=== PATIENT | male | born 1945 | race African-American/Black ===

== ENCOUNTER 2018-12-20 08:41 | Inpatient (IN) | payer MEDICARE, MEDICAID ==
[~2018-12-20] VITALS: Ht 175.3 cm; Wt 63.5 kg
[~2018-12-20 08:41] MED LIST: AMLO10TA80 PO; BENA20TA10 PO; LACTATED RINGERS 1,000 ML IV SCH; OXYB5TAB11 PO
[2018-12-20] MEDS ORDERED: ONDANSETRON HCL 4MG/2ML INJ IV PRN ×2 (09:15→14:30)
[2018-12-20] MEDS ORDERED: MORPHINE SULFATE 2 MG/ML CPJ (NOT FOR IM USE) IV PRN (09:15)
[2018-12-20] MEDS ORDERED: ACETAMINOPHEN 650MG SUPP PR PRN (09:15)
[2018-12-20] MEDS ORDERED: FENTANYL CITRATE/PF 50MCG/ML 2ML VIAL ONE ×2 (09:35→13:16)
[2018-12-20] MEDS ORDERED: MIDAZOLAM HCL 2 MG/2 ML VIAL ONE (09:36)
[2018-12-20] MEDS ORDERED: HYDROMORPHONE HCL/PF 2MG/ML (OR) ONE ×2 (09:36→14:13)
[2018-12-20] MEDS ORDERED: FENTANYL CITRATE/PF 50MCG/ML 5ML VIAL ONE (09:36)
[2018-12-20] MEDS ORDERED: PROPOFOL 200MG/20ML VIAL IV ONE (09:36)
[2018-12-20] MEDS ORDERED: ROCURONIUM BROMIDE 10MG/ML VIAL 5ML IV ONE (09:36)
[2018-12-20] MEDS ORDERED: EPHEDRINE SULFATE 50MG/ML VIAL ONE (10:40)
[2018-12-20] MEDS ORDERED: ONDANSETRON HCL 4MG/2ML INJ ONE (13:11)
[2018-12-20] MEDS ORDERED: NEOSTIGMINE METHYLSULFATE 1MG/ML 10 ML VIAL ONE (13:13)
[2018-12-20] MEDS ORDERED: GLYCOPYRROLATE 0.2 MG/ML 2ML VIAL ONE (13:13)
[2018-12-20] MEDS ORDERED: BUPIVACAINE HCL 0.5% 290 ML in ON-Q PM015 DRUG DELIV DEVICE 1 EA IR SCH (13:15)
[2018-12-20] MEDS ORDERED: BUPIVACAINE HCL 0.5% 290 ML in ON-Q PUMP (PM015=P270X4D) IR SCH (13:15)
[2018-12-20] MEDS ORDERED: METRONIDAZOLE 500 MG PREMIX 100 ML IV ONE (14:00)
[2018-12-20] MEDS ORDERED: BUPIVACAINE HCL 0.5% (5MG/ML) 50ML ONE (14:00)
[2018-12-20] MEDS ORDERED: LEVOFLOXACIN 500MG PREMIX 100 ML IV ONE (14:00)
[2018-12-20] MEDS ORDERED: SKIN ADHESIVE 0.7 GM EA TOP ONE (14:00)
[2018-12-20] MEDS ORDERED: INDOCYANINE GREEN 25 MG VIAL IV ONE (14:00)
[2018-12-20] MEDS ORDERED: FENTANYL CITRATE/PF 50MCG/ML 2ML VIAL IV PRN (14:30)
[2018-12-20] MEDS ORDERED: HYDROMORPHONE HCL/PF 2MG/ML CPJ IV PRN (14:30)
[2018-12-20] MEDS ORDERED: HYDROMORPHONE PCA 50 ML IV ONE (14:56)
[2018-12-20] MEDS ORDERED: NALOXONE INJ IV PRN (15:00)
[2018-12-20] MEDS ORDERED: HYDROMORPHONE PCA 10MG/50ML IV PRN (15:00)
[2018-12-20] MEDS ORDERED: DIPHENHYDRAMINE INJ IV PRN (15:00)
[2018-12-20] MEDS ORDERED: ONDANSETRON INJ IV PRN (15:00)
[2018-12-20 16:15] VITALS: BP 129/74
[2018-12-20] MEDS: LEVOFLOXACIN 500MG PREMIX 100 ML IV SCH (18:20)
[2018-12-20] MEDS: DEXT 5%/0.45% NACL KCL 20MEQ/L 1,000 ML IV SCH (18:20)
[2018-12-20 20:00] VITALS: BP 129/79
[2018-12-20] MEDS: METRONIDAZOLE 500 MG PREMIX 100 ML IV SCH (20:50)
[2018-12-20] MEDS: FAMOTIDINE 20MG/2ML VIAL IV SCH (20:50)
[2018-12-20] MEDS ORDERED: FAMOTIDINE 20MG/2ML VIAL IV NR (21:00)
[2018-12-21] VITALS: BP 141/86
[2018-12-21 04:00] VITALS: BP 119/61
[2018-12-21] MEDS: METRONIDAZOLE 500 MG PREMIX 100 ML IV SCH ×3 (04:44→13:53)
[2018-12-21] MEDS: DEXT 5%/0.45% NACL KCL 20MEQ/L 1,000 ML IV SCH ×2 (04:44→21:14)
[2018-12-21 08:00] VITALS: BP 136/74
[2018-12-21] MEDS: FAMOTIDINE 20MG/2ML VIAL IV SCH ×2 (09:06→21:14)
[2018-12-21 11:41] VITALS: BP 140/68
[2018-12-21 16:22] VITALS: BP 174/63
[2018-12-21] MEDS: LEVOFLOXACIN 500MG PREMIX 100 ML IV SCH (17:37)
[2018-12-21 20:00] VITALS: BP 133/70
[2018-12-22] VITALS: BP 143/75
[2018-12-22 04:00] VITALS: BP 139/79
[2018-12-22 08:00] VITALS: BP 136/65
[2018-12-22] MEDS: DEXT 5%/0.45% NACL KCL 20MEQ/L 1,000 ML IV SCH ×2 (09:14→20:30)
[2018-12-22] MEDS: FAMOTIDINE 20MG/2ML VIAL IV SCH ×2 (09:14→21:56)
[2018-12-22 12:02] VITALS: BP 152/79
[2018-12-22] MEDS ORDERED: HYDRALAZINE 20MG/ML VIAL IV PRN (13:45)
[2018-12-22] MEDS ORDERED: HYDRALAZINE 10 MG in SODIUM CHLORIDE 0.9% 49.5 ML IV PRN (14:00)
[2018-12-22] MEDS: TAMSULOSIN HCL 0.4MG SR CAPSULE PO SCH (14:12)
[2018-12-22] MEDS: AMLODIPINE 10MG TABLET PO SCH (14:12)
[2018-12-22] MEDS: FINASTERIDE 5MG TABLET PO SCH (14:12)
[2018-12-22 16:00] VITALS: BP 148/80
[2018-12-22 20:00] VITALS: BP 150/84
[2018-12-23] VITALS: BP 137/76
[2018-12-23 04:00] VITALS: BP 136/88
[2018-12-23] MEDS: DEXT 5%/0.45% NACL KCL 20MEQ/L 1,000 ML IV SCH ×2 (06:30→15:40)
[2018-12-23 08:00] VITALS: BP 145/63
[2018-12-23 08:09] LABS: HEMATOCRIT. 35.1 % (42.0-52.0); HEMOGLOBIN. 11.5 g/dL (14.0-18.0); MEAN CORPUSCULAR HEMOGLOBIN 27.8 pg (28.0-32.0); MEAN CORPUSCULAR VOLUME 84.7 fL (80.0-94.0); MEAN PLATELET VOLUME 8.7 fl (7.4-10.4); PLATELET 250 x1000/uL (130-400); RED BLOOD CELL COUNT 4.15 mill/uL (4.7-6.1); RED CELL DISTRIBUTION WIDTH 16.5 % (11.6-14.6)
[2018-12-23 09:10] LABS: CHLORIDE 103 mEq/L (98-107)
[2018-12-23] MEDS: TAMSULOSIN HCL 0.4MG SR CAPSULE PO SCH (09:11)
[2018-12-23] MEDS: FAMOTIDINE 20MG/2ML VIAL IV SCH ×2 (09:12→21:55)
[2018-12-23] MEDS: AMLODIPINE 10MG TABLET PO SCH (09:12)
[2018-12-23] MEDS: FINASTERIDE 5MG TABLET PO SCH (09:13)
[2018-12-23 09:24] LABS: HDL CHOLESTEROL 43 mg/dL (40-59); LDL CHOLESTEROL 55 mg/dL (5-100)
[2018-12-23 12:00] VITALS: BP 130/70
[2018-12-23 16:00] VITALS: BP_SYST 131; BP_SYST 145; BP_DIAS 63; BP_DIAS 77
[2018-12-23 20:00] VITALS: BP 147/73
[2018-12-24] VITALS: BP 135/69
[2018-12-24] MEDS: DEXT 5%/0.45% NACL KCL 20MEQ/L 1,000 ML IV SCH ×3 (00:13→23:09)
[2018-12-24 03:43] LABS: PLATELET ESTIMATE NORMAL
[2018-12-24 04:00] VITALS: BP 129/61
[2018-12-24 08:00] VITALS: BP 124/73
[2018-12-24 08:29] LABS: HEMATOCRIT. 32.6 % (42.0-52.0); HEMOGLOBIN. 10.9 g/dL (14.0-18.0); MEAN CORPUSCULAR VOLUME 83.6 fL (80.0-94.0); MEAN PLATELET VOLUME 8.6 fl (7.4-10.4); PLATELET 260 x1000/uL (130-400); RED CELL DISTRIBUTION WIDTH 16.5 % (11.6-14.6)
[2018-12-24] MEDS: AMLODIPINE 10MG TABLET PO SCH (08:29)
[2018-12-24] MEDS: TAMSULOSIN HCL 0.4MG SR CAPSULE PO SCH (08:30)
[2018-12-24] MEDS: FAMOTIDINE 20MG/2ML VIAL IV SCH ×2 (08:31→20:56)
[2018-12-24] MEDS: FINASTERIDE 5MG TABLET PO SCH (08:31)
[2018-12-24 08:49] LABS: CHLORIDE 102 mEq/L (98-107)
[2018-12-24 12:00] VITALS: BP 153/76
[2018-12-24 14:16] LABS: PLATELET ESTIMATE NORMAL
[2018-12-24 16:00] VITALS: BP 122/76
[2018-12-24 20:00] VITALS: BP 119/74
[2018-12-25] VITALS: BP 144/73
[2018-12-25 04:00] VITALS: BP 141/69
[2018-12-25 08:00] VITALS: BP 134/74
[2018-12-25] MEDS: FINASTERIDE 5MG TABLET PO SCH (09:00)
[2018-12-25] MEDS: AMLODIPINE 10MG TABLET PO SCH (10:55)
[2018-12-25] MEDS: TAMSULOSIN HCL 0.4MG SR CAPSULE PO SCH (10:56)
[2018-12-25] MEDS: FAMOTIDINE 20MG/2ML VIAL IV SCH ×2 (10:57→21:20)
[2018-12-25] MEDS: ENOXAPARIN 40MG/0.4ML SYR SUBCUT SCH (10:58)
[2018-12-25 11:15] VITALS: BP 124/79
[2018-12-25 16:00] VITALS: BP 145/75
[2018-12-25] MEDS: DEXT 5%/0.45% NACL KCL 20MEQ/L 1,000 ML IV SCH ×2 (18:22→18:35)
[2018-12-25 20:00] VITALS: BP 133/83
[2018-12-26] VITALS: BP 136/71
[2018-12-26 04:00] VITALS: BP 141/70
[2018-12-26 08:00] VITALS: BP 133/69
[2018-12-26] MEDS: AMLODIPINE 10MG TABLET PO SCH (09:10)
[2018-12-26] MEDS: FAMOTIDINE 20MG/2ML VIAL IV SCH ×2 (09:10→21:25)
[2018-12-26] MEDS: FINASTERIDE 5MG TABLET PO SCH (09:11)
[2018-12-26] MEDS: TAMSULOSIN HCL 0.4MG SR CAPSULE PO SCH (09:11)
[2018-12-26] MEDS: ENOXAPARIN 40MG/0.4ML SYR SUBCUT SCH (09:12)
[2018-12-26 11:41] VITALS: BP 138/77
[2018-12-26 16:00] VITALS: BP 151/78
[2018-12-26] MEDS ORDERED: HYDROCODONE/ACETAMINOPHEN 5/325MG TABLET PO PRN (18:45)
[2018-12-26 20:00] VITALS: BP 145/90
[2018-12-26] MEDS: DEXT 5%/0.45% NACL KCL 20MEQ/L 1,000 ML IV SCH (21:26)
[2018-12-27] VITALS: BP 141/72
[2018-12-27 04:00] VITALS: BP 132/79
[2018-12-27 06:30] LABS: CHLORIDE 103 mEq/L (98-107)
[2018-12-27 06:37] LABS: HEMATOCRIT 32.6 % (42.0-52.0); HEMOGLOBIN 10.8 g/dL (14.0-18.0); MEAN CORPUSCULAR HEMOGLOBIN 27.6 pg (28.0-32.0); MEAN CORPUSCULAR VOLUME 83.2 fL (80.0-94.0); PLATELET 360 x1000/uL (130-400); RED BLOOD CELL COUNT 3.92 mill/uL (4.7-6.1); RED CELL DISTRIBUTION WIDTH 15.8 % (11.6-14.6)
[2018-12-27 08:00] VITALS: BP 138/81
[2018-12-27] MEDS: ENOXAPARIN 40MG/0.4ML SYR SUBCUT SCH (08:22)
[2018-12-27] MEDS: TAMSULOSIN HCL 0.4MG SR CAPSULE PO SCH (08:22)
[2018-12-27] MEDS: FINASTERIDE 5MG TABLET PO SCH (08:22)
[2018-12-27] MEDS: AMLODIPINE 10MG TABLET PO SCH (08:22)
[2018-12-27] MEDS: FAMOTIDINE 20MG/2ML VIAL IV SCH (08:22)
[2018-12-27] MEDS: DEXT 5%/0.45% NACL KCL 20MEQ/L 1,000 ML IV SCH (10:28)
[2018-12-27 12:00] VITALS: BP 146/78
[2018-12-27 16:00] VITALS: BP 133/78
[2018-12-27 20:00] VITALS: BP 142/83
== END 2018-12-27 22:15 | disposition home health service (06) | DRG 330 ==
LOC: OR 08:41 → 6EST 08:42
PROVIDERS: ADMIT Surgery; ATTEND Surgery
PROC: 0DBP0ZZ Excision of Rectum, Open Approach (ICD-10-PCS; principal; 2018-12-20)
PROC: 0D1B0Z4 Bypass Ileum to Cutaneous, Open Approach (ICD-10-PCS; 2018-12-20)
PROC: 8E0W4CZ Robotic Assisted Procedure of Trunk Region, Percutaneous Endoscopic Approach (ICD-10-PCS; 2018-12-20)
DX: C20 Malignant neoplasm of rectum (principal); E87.1 Hypo-osmolality and hyponatremia; D62 Acute posthemorrhagic anemia; E78.5 Hyperlipidemia, unspecified; F17.210 Nicotine dependence, cigarettes, uncomplicated; I10 Essential (primary) hypertension; N40.0 Benign prostatic hyperplasia without lower urinary tract symptoms; R63.6 Underweight; Z92.21 Personal history of antineoplastic chemotherapy; Z92.3 Personal history of irradiation; Z79.899 Other long term (current) drug therapy; Z91.048 Other nonmedicinal substance allergy status; Z68.20 Body mass index [BMI] 20.0-20.9, adult; Z53.31 Laparoscopic surgical procedure converted to open procedure
CPT/HCPCS: 36415; 74018; 80048; 80061; 82962; 85027; 86850; 86900; 88307; 88309; 88329; 97116; 97162; C1893; J1170; J1650; J1956; J2250; J2405; J2704; J2710; J3010; J3490; J7120; Q9957; A4315

== ENCOUNTER 2019-01-25 14:17 | Inpatient (IN) | payer MEDICARE, MEDICAID ==
[~2019-01-25] VITALS: Ht 175.3 cm; Wt 61.2 kg
[~2019-01-25 14:17] MED LIST changes: -LACTATED RINGERS 1,000 ML IV SCH
[2019-01-25] MEDS ORDERED: BACITRACIN 50,000 UNITS/VIAL ONE (14:46)
[2019-01-25] MEDS ORDERED: FENTANYL CITRATE/PF 50MCG/ML 2ML VIAL ONE ×2 (15:54→16:57)
[2019-01-25] MEDS ORDERED: PROPOFOL 200MG/20ML VIAL IV ONE (15:54)
[2019-01-25] MEDS ORDERED: MIDAZOLAM HCL 2 MG/2 ML VIAL ONE (15:55)
[2019-01-25] MEDS ORDERED: LACTATED RINGERS 1,000 ML IV SCH (16:00)
[2019-01-25] MEDS ORDERED: FINA5TAB11 PO (16:10)
[2019-01-25] MEDS ORDERED: ROCURONIUM BROMIDE 10MG/ML VIAL 5ML IV ONE (16:19)
[2019-01-25] MEDS ORDERED: MORPHINE SULFATE 2 MG/ML CPJ (NOT FOR IM USE) IV PRN (16:30)
[2019-01-25] MEDS ORDERED: GLYCOPYRROLATE 0.2 MG/ML 2ML VIAL ONE (17:08)
[2019-01-25] MEDS ORDERED: NEOSTIGMINE METHYLSULFATE 1MG/ML 10 ML VIAL ONE (17:08)
[2019-01-25] MEDS ORDERED: ONDANSETRON HCL 4MG/2ML INJ IV PRN (18:00)
[2019-01-25] MEDS ORDERED: HYDROMORPHONE HCL/PF 2MG/ML CPJ IV PRN ×2 (18:00)
[2019-01-25] MEDS ORDERED: ACETAMINOPHEN 650MG SUPP PR PRN (18:00)
[2019-01-25] MEDS ORDERED: KETOROLAC 15MG/ML VIAL IV PRN (18:00)
[2019-01-25] MEDS ORDERED: HYDROMORPHONE HCL/PF 2MG/ML (OR) ONE (18:20)
[2019-01-25 20:00] VITALS: BP 127/69
[2019-01-25 21:00] VITALS: BP 127/69
[2019-01-26] VITALS: BP_SYST 127; BP_SYST 137; BP_DIAS 67; BP_DIAS 69
[2019-01-26] MEDS: DEXT 5%/0.45% NACL KCL 20MEQ/L 1,000 ML IV SCH ×2 (00:31→12:58)
[2019-01-26] MEDS: CEFAZOLIN 1000MG PREMIX 50 ML IV SCH ×3 (00:31→16:00)
[2019-01-26] MEDS ORDERED: ACETAMINOPHEN 650MG SUPP PR PRN (02:00)
[2019-01-26 04:00] VITALS: BP 129/64
[2019-01-26 06:50] LABS: CHLORIDE 101 mEq/L (98-107)
[2019-01-26 08:00] VITALS: BP 135/54
[2019-01-26] MEDS ORDERED: FAMOTIDINE 20MG/2ML VIAL IV SCH (09:00)
[2019-01-26 12:00] VITALS: BP 132/67
[2019-01-26 16:14] VITALS: BP 119/65
== END 2019-01-26 16:53 | disposition left against medical advice (07) | DRG 331 ==
LOC: ORIP 14:32 → 6EST 20:48
PROVIDERS: ADMIT Surgery; ATTEND Surgery
PROC: 0D1B0Z4 Bypass Ileum to Cutaneous, Open Approach (ICD-10-PCS; principal; 2019-01-25)
DX: K94.19 Other complications of enterostomy (principal); Z53.21 Procedure and treatment not carried out due to patient leaving prior to being seen by health care provider; Z79.899 Other long term (current) drug therapy; Z85.048 Personal history of other malignant neoplasm of rectum, rectosigmoid junction, and anus
CPT/HCPCS: 36415; 80048; 88307; 93005; J0690; J1170; J2250; J2270; J2704; J2710; J3010; J3490

== ENCOUNTER → 2019-05-03 | Outpatient (CLI) | payer MEDICARE, MEDICAID ==
[~2019-05-03] MED LIST changes: -AMLO10TA80 PO; -BENA20TA10 PO; +DIATR MEGLU/DIATRIZOATE SOLN 120ML ONE; +FINA5TAB11 PO
== END | disposition home or self-care (01) ==
LOC: RAD 07:35
PROVIDERS: ATTEND Surgery
DX: Z43.3 Encounter for attention to colostomy (principal)
CPT/HCPCS: 74270; Q9963

== ENCOUNTER 2019-05-30 06:56 | Inpatient (IN) | payer MEDICARE, MEDICAID ==
[~2019-05-30] VITALS: Ht 175.3 cm; Wt 65.8 kg
[~2019-05-30 06:56] MED LIST changes: -DIATR MEGLU/DIATRIZOATE SOLN 120ML ONE; -OXYB5TAB11 PO; +OXYB5TAB17 PO
[2019-05-30] MEDS ORDERED: LACTATED RINGERS 1,000 ML IV SCH (07:40)
[2019-05-30 08:05] LABS: CLARITY URINE CLOUDY (CLEAR); COLOR URINE YELLOW (YELLOW); KETONES URINE TRACE (NEGATIVE); LEUKOCYTE ESTERASE URINE NEGATIVE (NEGATIVE); NITRITE URINE NEGATIVE (NEGATIVE); OCCULT BLOOD URINE 2+ (NEGATIVE); PH URINE 5.5 (4.5-8.0); PROTEIN URINE TRACE (NEGATIVE); SPECIFIC GRAVITY URINE 1.014 (1.005-1.030); UROBILINOGEN URINE 0.2 E.U./dL (0.2-1.0)
[2019-05-30] MEDS ORDERED: SKIN ADHESIVE 0.7 GM EA TOP ONE (08:13)
[2019-05-30] MEDS ORDERED: BUPIVACAINE HCL 0.5% (5MG/ML) 50ML ONE (08:14)
[2019-05-30] MEDS ORDERED: AMLO10TA80 PO (08:39)
[2019-05-30] MEDS ORDERED: FINA5TAB11 PO (08:39)
[2019-05-30] MEDS ORDERED: VIT1CAPS49 PO (08:39)
[2019-05-30] MEDS ORDERED: MULT-1146 PO (08:39)
[2019-05-30] MEDS ORDERED: BENA20TA10 PO (08:39)
[2019-05-30] MEDS ORDERED: BIOT5000 PO (08:39)
[2019-05-30] MEDS ORDERED: LEVOFLOXACIN 500MG PREMIX 100 ML IV ONE (08:41)
[2019-05-30] MEDS ORDERED: MIDAZOLAM HCL 2 MG/2 ML VIAL ONE (09:41)
[2019-05-30] MEDS ORDERED: FENTANYL CITRATE/PF 50MCG/ML 2ML VIAL ONE (09:41)
[2019-05-30] MEDS ORDERED: PROPOFOL 200MG/20ML VIAL IV ONE (09:41)
[2019-05-30] MEDS ORDERED: SUCCINYLCHOLINE CHLORIDE 200MG/10ML IV ONE (09:42)
[2019-05-30] MEDS ORDERED: VECURONIUM BROMIDE 10 MG/VIAL IV ONE (09:42)
[2019-05-30] MEDS ORDERED: LIDOCAINE HCL/PF 1% 10 MG/ML 5ML VIAL ONE ×2 (09:42→10:12)
[2019-05-30] MEDS ORDERED: GLYCOPYRROLATE 0.2 MG/ML 2ML VIAL ONE (10:20)
[2019-05-30] MEDS ORDERED: HYDRALAZINE 20MG/ML VIAL ONE (10:53)
[2019-05-30] MEDS ORDERED: ONDANSETRON HCL 4MG/2ML INJ IV PRN ×2 (11:00→11:15)
[2019-05-30] MEDS ORDERED: ACETAMINOPHEN 650MG SUPP PR PRN (11:00)
[2019-05-30] MEDS: HYDROMORPHONE HCL/PF 2MG/ML CPJ IV PRN ×2 (11:28→12:44)
[2019-05-30 13:55] VITALS: BP_SYST 133; BP_SYST 138; BP_DIAS 70; BP_DIAS 76
[2019-05-30] MEDS: MORPHINE SULFATE 2 MG/ML CPJ (NOT FOR IM USE) IV PRN ×2 (15:12→20:19)
[2019-05-30 16:00] VITALS: BP_SYST 133; BP_SYST 140; BP_DIAS 72; BP_DIAS 76
[2019-05-30] MEDS: METOPROLOL TARTRATE 5MG/5ML VIAL IV SCH (17:07)
[2019-05-30] MEDS: DEXT 5%/0.45% NACL KCL 20MEQ/L 1,000 ML IV SCH (18:21)
[2019-05-30 19:38] LABS: HEMATOCRIT. 40.4 % (42.0-52.0); HEMOGLOBIN. 13.2 g/dL (14.0-18.0); MEAN CORPUSCULAR HEMOGLOBIN 26.6 pg (28.0-32.0); MEAN CORPUSCULAR VOLUME 81.9 fL (80.0-94.0); MEAN PLATELET VOLUME 7.9 fl (7.4-10.4); PLATELET 250 x1000/uL (130-400); RED BLOOD CELL COUNT 4.94 mill/uL (4.7-6.1); RED CELL DISTRIBUTION WIDTH 16.8 % (11.6-14.6)
[2019-05-30 19:51] LABS: CHLORIDE 101 mEq/L (98-107)
[2019-05-30 20:17] LABS: PLATELET ESTIMATE NORMAL
[2019-05-31] VITALS: BP 163/80
[2019-05-31] MEDS: METOPROLOL TARTRATE 5MG/5ML VIAL IV SCH ×4 (00:23→16:07)
[2019-05-31] MEDS: MORPHINE SULFATE 2 MG/ML CPJ (NOT FOR IM USE) IV PRN (03:27)
[2019-05-31] MEDS: DEXT 5%/0.45% NACL KCL 20MEQ/L 1,000 ML IV SCH ×2 (03:34→11:03)
[2019-05-31 06:00] VITALS: BP 149/77
[2019-05-31 07:08] LABS: HEMATOCRIT. 38.7 % (42.0-52.0); HEMOGLOBIN. 12.6 g/dL (14.0-18.0); MEAN CORPUSCULAR VOLUME 82.9 fL (80.0-94.0); MEAN PLATELET VOLUME 8.8 fl (7.4-10.4); PLATELET 198 x1000/uL (130-400); RED BLOOD CELL COUNT 4.67 mill/uL (4.7-6.1); RED CELL DISTRIBUTION WIDTH 16.8 % (11.6-14.6)
[2019-05-31 07:11] LABS: CHLORIDE 103 mEq/L (98-107)
[2019-05-31 12:00] VITALS: BP 168/78
[2019-05-31 12:56] LABS: PLATELET ESTIMATE NORMAL
[2019-05-31] MEDS ORDERED: MAGNESIUM 2 G PREMIX 50 ML IV SCH (13:00)
[2019-05-31 16:00] VITALS: BP_SYST 170; BP_DIAS 52; BP_DIAS 57
[2019-05-31 17:04] VITALS: BP 170/57
[2019-06-01] VITALS: BP 161/81
[2019-06-01] MEDS: METOPROLOL TARTRATE 5MG/5ML VIAL IV SCH ×3 (00:24→16:00)
[2019-06-01] MEDS: DEXT 5%/0.45% NACL KCL 20MEQ/L 1,000 ML IV SCH ×2 (00:25→10:49)
[2019-06-01] MEDS: MORPHINE SULFATE 2 MG/ML CPJ (NOT FOR IM USE) IV PRN ×2 (03:36→16:09)
[2019-06-01 04:00] VITALS: BP 148/73
[2019-06-01 06:30] LABS: CHLORIDE 101 mEq/L (98-107)
[2019-06-01 06:32] LABS: HEMATOCRIT. 37.7 % (42.0-52.0); HEMOGLOBIN. 12.5 g/dL (14.0-18.0); MEAN CORPUSCULAR HEMOGLOBIN 27.2 pg (28.0-32.0); MEAN CORPUSCULAR VOLUME 81.7 fL (80.0-94.0); MEAN PLATELET VOLUME 8.9 fl (7.4-10.4); PLATELET 214 x1000/uL (130-400); RED BLOOD CELL COUNT 4.62 mill/uL (4.7-6.1); RED CELL DISTRIBUTION WIDTH 16.5 % (11.6-14.6)
[2019-06-01 11:16] VITALS: BP 146/75
[2019-06-01 12:17] LABS: PLATELET ESTIMATE NORMAL
[2019-06-01] MEDS: MAGNESIUM OXIDE 400MG TABLET PO SCH (12:36)
[2019-06-01 16:00] VITALS: BP 155/86
[2019-06-01 20:25] VITALS: BP 122/80
[2019-06-02] VITALS: BP 146/74
[2019-06-02] MEDS: METOPROLOL TARTRATE 5MG/5ML VIAL IV SCH ×2 (00:23→08:53)
[2019-06-02] MEDS: DEXT 5%/0.45% NACL KCL 20MEQ/L 1,000 ML IV SCH ×4 (00:24→22:30)
[2019-06-02] MEDS: MORPHINE SULFATE 2 MG/ML CPJ (NOT FOR IM USE) IV PRN (02:41)
[2019-06-02 08:00] VITALS: BP 159/90
[2019-06-02] MEDS: MAGNESIUM OXIDE 400MG TABLET PO SCH (08:52)
[2019-06-02] MEDS: METOPROLOL TARTRATE 25MG TABLET PO SCH ×2 (11:51→22:04)
[2019-06-02 12:00] VITALS: BP 151/91
[2019-06-02 16:25] VITALS: BP 175/88
[2019-06-02 20:00] VITALS: BP 168/79
[2019-06-02] MEDS: LISINOPRIL 10MG TABLET PO SCH (22:04)
[2019-06-02] MEDS: AMLODIPINE 5MG TABLET PO SCH (22:04)
[2019-06-03] VITALS: BP 156/82
[2019-06-03] MEDS: MORPHINE SULFATE 2 MG/ML CPJ (NOT FOR IM USE) IV PRN ×3 (00:13→22:16)
[2019-06-03] MEDS: METOPROLOL TARTRATE 5MG/5ML VIAL IV SCH ×2 (00:33→08:59)
[2019-06-03 04:00] VITALS: BP 149/86
[2019-06-03 05:40] LABS: HEMATOCRIT. 37.3 % (42.0-52.0); HEMOGLOBIN. 12.5 g/dL (14.0-18.0); MEAN CORPUSCULAR HEMOGLOBIN 27.1 pg (28.0-32.0); MEAN CORPUSCULAR VOLUME 80.9 fL (80.0-94.0); MEAN PLATELET VOLUME 8.1 fl (7.4-10.4); PLATELET 237 x1000/uL (130-400); RED BLOOD CELL COUNT 4.61 mill/uL (4.7-6.1); RED CELL DISTRIBUTION WIDTH 15.9 % (11.6-14.6)
[2019-06-03 06:13] LABS: CHLORIDE 100 mEq/L (98-107)
[2019-06-03 08:00] VITALS: BP 166/81
[2019-06-03] MEDS: DEXT 5%/0.45% NACL KCL 20MEQ/L 1,000 ML IV SCH ×2 (08:58→17:55)
[2019-06-03] MEDS: MAGNESIUM OXIDE 400MG TABLET PO SCH (09:29)
[2019-06-03] MEDS: AMLODIPINE 5MG TABLET PO SCH ×2 (09:29→21:21)
[2019-06-03] MEDS: LISINOPRIL 10MG TABLET PO SCH ×2 (09:29→21:21)
[2019-06-03] MEDS: METOPROLOL TARTRATE 25MG TABLET PO SCH (09:29)
[2019-06-03 10:35] LABS: PLATELET ESTIMATE NORMAL
[2019-06-03 12:00] VITALS: BP 141/75
[2019-06-03 16:00] VITALS: BP_SYST 141; BP_SYST 159; BP_DIAS 75; BP_DIAS 76
[2019-06-03 20:00] VITALS: BP 147/78
[2019-06-03] MEDS: METOPROLOL TARTRATE 50MG TABLET PO SCH (21:22)
[2019-06-04] VITALS: BP 129/75
[2019-06-04 04:00] VITALS: BP 114/69
[2019-06-04] MEDS: DEXT 5%/0.45% NACL KCL 20MEQ/L 1,000 ML IV SCH ×2 (05:02→16:55)
[2019-06-04 07:17] LABS: HEMATOCRIT. 36.5 % (42.0-52.0); MEAN CORPUSCULAR HEMOGLOBIN 27.1 pg (28.0-32.0); MEAN CORPUSCULAR VOLUME 82.3 fL (80.0-94.0); MEAN PLATELET VOLUME 8.1 fl (7.4-10.4); PLATELET 249 x1000/uL (130-400); RED BLOOD CELL COUNT 4.43 mill/uL (4.7-6.1)
[2019-06-04 07:58] LABS: CHLORIDE 103 mEq/L (98-107)
[2019-06-04] MEDS: AMLODIPINE 5MG TABLET PO SCH ×2 (09:17→20:18)
[2019-06-04] MEDS: MAGNESIUM OXIDE 400MG TABLET PO SCH (09:17)
[2019-06-04] MEDS: LISINOPRIL 10MG TABLET PO SCH ×2 (09:17→20:18)
[2019-06-04] MEDS: METOPROLOL TARTRATE 50MG TABLET PO SCH ×2 (09:18→20:18)
[2019-06-04 12:00] VITALS: BP 123/80
[2019-06-04] MEDS ORDERED: HYDROCODONE/ACETAMINOPHEN 5/325MG TABLET PO PRN (12:15)
[2019-06-04 13:48] LABS: PLATELET ESTIMATE NORMAL
[2019-06-04 16:00] VITALS: BP 112/78
[2019-06-04 20:00] VITALS: BP 105/70
[2019-06-05] VITALS: BP 105/62
[2019-06-05] MEDS: DEXT 5%/0.45% NACL KCL 20MEQ/L 1,000 ML IV SCH (03:53)
[2019-06-05 04:00] VITALS: BP 112/67
[2019-06-05 07:30] LABS: HEMATOCRIT. 34.7 % (42.0-52.0); HEMOGLOBIN. 11.6 g/dL (14.0-18.0); MEAN CORPUSCULAR HEMOGLOBIN 27.4 pg (28.0-32.0); MEAN CORPUSCULAR VOLUME 82.1 fL (80.0-94.0); MEAN PLATELET VOLUME 7.9 fl (7.4-10.4); PLATELET 262 x1000/uL (130-400); RED BLOOD CELL COUNT 4.22 mill/uL (4.7-6.1); RED CELL DISTRIBUTION WIDTH 15.7 % (11.6-14.6)
[2019-06-05 07:45] LABS: CHLORIDE 103 mEq/L (98-107)
[2019-06-05] MEDS: LISINOPRIL 10MG TABLET PO SCH (09:41)
[2019-06-05] MEDS: MAGNESIUM OXIDE 400MG TABLET PO SCH (09:41)
[2019-06-05] MEDS: AMLODIPINE 5MG TABLET PO SCH (09:42)
[2019-06-05] MEDS ORDERED: METOPROLOL TARTRATE 25MG TABLET PO SCH (10:00)
[2019-06-05 11:44] LABS: ATYPICAL LYMPHOCYTES 1; PLATELET ESTIMATE NORMAL
[2019-06-05 12:00] VITALS: BP 143/84
[2019-06-05 12:16] VITALS: BP 113/80
== END 2019-06-05 13:35 | disposition home or self-care (01) | DRG 982 ==
LOC: OR 06:56 → 8WST 06:57
PROVIDERS: ADMIT Surgery; ATTEND Surgery
PROC: 0DSB0ZZ Reposition Ileum, Open Approach (ICD-10-PCS; principal; 2019-05-30)
DX: I49.3 Ventricular premature depolarization (principal); K56.7 Ileus, unspecified; I47.2 Ventricular tachycardia; I11.9 Hypertensive heart disease without heart failure; F17.210 Nicotine dependence, cigarettes, uncomplicated; E83.42 Hypomagnesemia; I48.91 Unspecified atrial fibrillation; N40.0 Benign prostatic hyperplasia without lower urinary tract symptoms; Z79.899 Other long term (current) drug therapy; Z93.3 Colostomy status; Z85.048 Personal history of other malignant neoplasm of rectum, rectosigmoid junction, and anus
CPT/HCPCS: 36415; 71045; 80048; 81003; 83735; 84443; 85025; 88307; 93005; 93306; 97162; C1893; J0330; J0360; J1170; J1956; J2250; J2270; J2704; J3010; J3475; J3490